=== PATIENT | female | born 1960 | race Caucasian/White ===

== ENCOUNTER 2025-05-01 21:26 | Emergency (ER) | payer MEDICARE, SELFPAY ==
--- NOTE | 2025-05-01 21:28 | ECG_ITS ---
APPROVED REPORT Exam: Resting ECG HR:79 bpm ECG Measurements Heart Rate [address] 142 P 38 QRSd 89 QRS 5 QT 391 T 42 QTc 426 Conclusion SINUS RHYTHM LOW QRS VOLTAGE IN PRECORDIAL LEADS [QRS DEFLECTION < 1.0 mV IN CHEST LEADS] POSSIBLE RIGHT VENTRICULAR CONDUCTION DELAY [RSR (QR) IN V1/V2] BORDERLINE ECG UNCONFIRMED REPORT Normal sinus rhythm. QTc normal at 426. No ST elevation or depression Electronically signed by : ALEXANDER RODNEY, 05/02/2025 11:14:42
[2025-05-01 21:29] VITALS: BP 117/78; PULSE 82; RESP 18; TEMP 36.7; O2SAT 100; BMI 30.7
--- NOTE | 2025-05-01 21:29 | XR_ITS ---
PROCEDURE INFORMATION: Exam: XR Chest Exam date and time: 05/01/2025 10:38 PM Age: 64 years old Clinical indication: Other: Syncope TECHNIQUE: Imaging protocol: Radiologic exam of the chest. Views: 1 view. COMPARISON: CT ANGIO CHEST PE PROTOCOL 05/01/2025 10:33 PM FINDINGS: Lungs: Minor atelectasis findings at the left lung base Pleural spaces: Unremarkable. No pleural effusion. No pneumothorax. Heart/Mediastinum: Unremarkable. No cardiomegaly. Bones/joints: Unremarkable. IMPRESSION: Minor atelectasis findings at the left lung base. Otherwise negative exam
--- NOTE | 2025-05-01 21:29 | CT_ITS ---
PROCEDURE INFORMATION: Exam: CT Head Without Contrast Exam date and time: 05/01/2025 10:22 PM Age: 64 years old Clinical indication: Other: Brief unresponsiveness; Additional info: Brief unresponsiveness, history of stroke TECHNIQUE: Imaging protocol: Computed tomography of the head without contrast. Radiation optimization: All CT scans at this facility use at least one of these dose optimization techniques: automated exposure control; mA and/or kV adjustment per patient size (includes targeted exams where dose is matched to clinical indication); or iterative reconstruction. COMPARISON: CT HEAD/BRAIN WO CON 05/01/2025 10:22 PM FINDINGS: Brain: No evidence for intracranial hemorrhage, mass lesions or acute stroke. 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 Moderate small-vessel ischemic changes of periventricular white matter. Intracranial vascular calcifications. Cerebral ventricles: Ex vacuo enlargement of the right lateral ventricle. Pituitary gland and sella: Negative Paranasal sinuses: Visualized sinuses are unremarkable. No fluid levels. Mastoid air cells: Visualized mastoid air cells are well aerated. Orbital cavities: Negative. Bones: Unremarkable. No acute fracture. Soft tissues: Unremarkable. Vasculature: Negative. IMPRESSION: 1. No evidence for intracranial hemorrhage, mass lesions or acute stroke. 2. 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 3. Ex vacuo enlargement of the right lateral ventricle. 4. Moderate small-vessel ischemic changes of periventricular white matter. 5. Intracranial vascular calcifications.
--- NOTE | 2025-05-01 21:29 | CT_ITS ---
PROCEDURE INFORMATION: Exam: CTA Head With Contrast, Arteriography Exam date and time: 05/01/2025 10:28 PM Age: 64 years old Clinical indication: Other: Brief unresponsiveness; Additional info: Brief unresponsiveness, history of stroke TECHNIQUE: Imaging protocol: Computed tomographic angiography of the head with contrast. Exam focused on the arteries. 3D rendering (Not supervised by radiologist): MIP and/or 3D reconstructed images were created by the technologist. Radiation optimization: All CT scans at this facility use at least one of these dose optimization techniques: automated exposure control; mA and/or kV adjustment per patient size (includes targeted exams where dose is matched to clinical indication); or iterative reconstruction. Contrast material: ISOVUE; Contrast volume: 80 ml; Contrast route: INTRAVENOUS (IV); COMPARISON: CT HEAD/BRAIN WO CON 05/01/2025 10:22 PM FINDINGS: ANTERIOR CIRCULATION: Right internal carotid artery: Intracranial segment is patent with no significant stenosis. No aneurysm. Right middle cerebral artery: Diminutive caliber distal right middle cerebral artery with decreased profusion of distal right MCA candelabra branches; consistent with prior right MCA infarct. Right anterior cerebral artery: No occlusion or significant stenosis. No aneurysm. Left internal carotid artery: Intracranial segment is patent with no significant stenosis. No aneurysm. Left middle cerebral artery: Left middle cerebral artery is patent. No evidence for branch occlusion. Left anterior cerebral artery: No occlusion or significant stenosis. No aneurysm. POSTERIOR CIRCULATION: Right vertebral artery: No occlusion or significant stenosis. No aneurysm. Left vertebral artery: No occlusion or significant stenosis. No aneurysm. Basilar artery: No occlusion or significant stenosis. No aneurysm. Right posterior cerebral artery: No occlusion or significant stenosis. No aneurysm. Left posterior cerebral artery: No occlusion or significant stenosis. No aneurysm. 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 Small vessel ischemic changes of the periventricular white matter. Cerebral ventricles: Ex vacuo enlargement of the right lateral ventricle. Bones/joints: Unremarkable. No acute fracture. Soft tissues: Unremarkable. IMPRESSION: 1. Diminutive caliber distal right middle cerebral artery with decreased profusion of distal right MCA candelabra branches; consistent with prior right MCA infarct. 2. Left middle cerebral artery is patent. No evidence for branch occlusion. 3. Posterior circulation vessels are patent. 4. 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 5. Ex vacuo enlargement of the right lateral ventricle. 6. Small vessel ischemic changes of the periventricular white matter.
--- NOTE | 2025-05-01 21:29 | CT_ITS ---
PROCEDURE INFORMATION: Exam: CTA Neck With Contrast Exam date and time: 05/01/2025 10:28 PM Age: 64 years old Clinical indication: Other: Brief unresponsiveness; Additional info: Brief unresponsiveness, history of stroke TECHNIQUE: Imaging protocol: Computed tomographic angiography of the neck with contrast. Exam focused on the cervical segments of the vasculature. 3D rendering (Not supervised by radiologist): MIP and/or 3D reconstructed images were created by the technologist. Radiation optimization: All CT scans at this facility use at least one of these dose optimization techniques: automated exposure control; mA and/or kV adjustment per patient size (includes targeted exams where dose is matched to clinical indication); or iterative reconstruction. Contrast material: ISOVUE; Contrast volume: 80 ml; Contrast route: INTRAVENOUS (IV); COMPARISON: CT HEAD/BRAIN WO CON 05/01/2025 10:22 PM FINDINGS: Right common carotid artery: No stenosis. No dissection or occlusion. Right internal carotid artery: Diminutive caliber proximal right internal carotid artery along with other multifocal stenoses. The findings may be chronic given the extensive old right MCA infarct. Right external carotid artery: No occlusion or stenosis of the origin. Left common carotid artery: Patent left carotid. Calcific plaque left carotid bifurcation along with soft plaque without hemodynamically significant stenosis. Left internal carotid artery: Left internal carotid artery cervical loop. Patent vertebral artery segments. Left external carotid artery: There is a 50% left external carotid stenosis coronal image 5/59. Right vertebral artery: No stenosis. No dissection or occlusion. Left vertebral artery: No stenosis. No dissection or occlusion. Soft tissues: Normal. No significant soft tissue swelling. Bones/joints: No acute fracture. IMPRESSION: 1. Diminutive caliber proximal right internal carotid artery along with other multifocal stenoses. The findings may be chronic given the extensive old right MCA infarct. 2. Patent left carotid. Calcific plaque left carotid bifurcation along with soft plaque without hemodynamically significant stenosis. 3. There is a 50% left external carotid stenosis coronal image 5/59. 4. Left internal carotid artery cervical loop. Patent vertebral artery segments. REFERENCES: NASCET CRITERIA. The degree of stenosis in the cervical segment of the internal carotid artery is based on NASCET criteria. Normal is no stenosis. Mild is less than 50% stenosis. Moderate is 50-69% stenosis. Severe is 70% to 99% stenosis. Total occlusion is no detectable patent lumen.
--- NOTE | 2025-05-01 21:35 | [facility].EDGENADL ---
Discharge Plan Disposition Patient Disposition: Home, Self-Care Condition: Good Activity Restrictions/Add. Instructions Additional Instructions/Restrictions: Follow-up with her primary care physician over the next few days. If she develops any new or worsening symptoms, or if you become concerned for her health for any reason, return to the emergency department for evaluation. Clinical Impressions Clinical Impression: Syncope, vasovagal Instructions Patient Instructions: DI for Syncope in Adults (Fainting), DI for Syncope in Children (Fainting) Print Language Print Language: Serbian Discharge ED Provider: Carlos Mueller Adult HPI General Chief complaint: Syncope Stated complaint: unresponsive Time Seen by Provider: 05/01/25 21:34 Mode of Arrival: EMS Source of Information: Patient and EMS Description of Symptoms (Recalled from ER Triage Doc. by RN): Pts family called EMS stating that pt had passed out and was unresponsive on the toilet. EMS reports upon their arrival pt was responsive to verbal stimuli and oriented x2, and hypotensive. EMS reports large BM. Pt has hx of CVA, on eliquis. no new deficits noted. A&O x4. BP WNL History of Present Illness HPI narrative: Adriana Suarez is a 64-year-old female with a history of previous stroke resulting in left-sided deficits on Eliquis and aspirin, hypertension, hyperlipidemia who presents to the emergency department for complaints of an episode of unresponsiveness. Per EMS and patient, she was on the toilet and had a bowel movement and reportedly by family had an episode of unresponsiveness. Patient denies losing consciousness but family told EMS that she was fully unresponsive. Per EMS, she would wake up with nonpainful stimuli upon arrival and was alert and oriented x 2. They noticed a large bowel movement in the toilet. They state that she was initially hypotensive on manual blood pressure, however repeat automatic blood pressure was within normal limits and she remained normotensive throughout the transport. Fingerstick blood glucose was 99. At this time, patient has no complaints or concerns. She denies any abdominal pain, chest pain, shortness of breath or weakness. She is oriented to self and location but thinks it is 2022. It was also noted that patient recently returned from a trip from [facility] Related Data Allergies Allergy/AdvReac Type Severity Reaction Status Date / Time No Known Allergies Allergy Verified 05/01/25 21:35 [facility] Disclaimer: The information contained in this section may have been updated after the patient was seen, as this information can be updated by other users. Social History Smoking Status: Current every day smoker alcohol intake: never current occupational status: other Travel in the last 8 weeks?: None ROS Obtained: Yes Systems reviewed as appropriate & no additional complaints except as documented Physical Exam General General appearance: alert and in no apparent distress Comment: answering questions, following commands Head Head exam: atraumatic Eye Eye exam: Present normal appearance, PERRL and EOMI ENT ENT exam: Present normal external ear exam Neck Neck exam: Present full ROM Chest Chest inspection: Present symmetric chest wall rise Respiratory Respiratory exam: Present normal lung sounds bilaterally; Absent respiratory distress, wheezes or stridor Cardiovascular Cardiovascular exam: Present regular rate and normal rhythm Abdominal Exam Abdominal exam: Present soft; Absent tenderness or guarding Extremities Exam Extremities exam: Present normal inspection Back Exam Back exam: Present normal inspection Neurological Exam Neurological exam: Present alert, oriented X3, CN II-XII intact, normal gait and other (No dysdiadochokinesia. She has a contracted left fist but is able to hold her left arm in the air with minimal drift. 5 out of 5 strength and sensation to the right upper extremity. 5 out of 5 strength and sensation to the bilateral lower extremities. She is alert and oriented to self and locati) Psychiatric Psychiatric exam: Present normal affect Skin Skin exam: Present warm and dry Medical Decision Making Medical Records Screening: Per USPSTF and CDC recommendations, given the prevalence of disease in our region, it is our hospital?s policy to screen for HIV and viral Hepatitis for all patients aged 18 and over and those with ongoing risk factors. Geoff Inquiry Pt receiving controlled substance: No Vital Signs: 05/01/25 21:29 05/01/25 22:45 05/01/25 23:31 Temperature 98.1 F Temperature Source Oral Pulse Rate 83 Pulse Rate [Left Radial] 82 Respiratory Rate 18 14 22 Blood Pressure 101/79 L 124/94 H Blood Pressure [Right Arm] 117/78 Blood Pressure Mean [Right Arm] 91 Blood Pressure Source Blood Pressure Source [Right Arm] Automatic Cuff Blood Pressure Position Blood Pressure Position [Right Arm] Sitting 02 Sat by Pulse Oximetry 100 99 Oxygen Delivery Method Room Air 05/02/25 00:02 05/02/25 00:26 Temperature 98.4 F Temperature Source Oral Pulse Rate 85 Pulse Rate [Left Radial] Respiratory Rate 16 17 Blood Pressure 143/126 H 149/126 H Blood Pressure [Right Arm] Blood Pressure Mean [Right Arm] Blood Pressure Source Automatic Cuff Blood Pressure Source [Right Arm] Blood Pressure Position Sitting Blood Pressure Position [Right Arm] 02 Sat by Pulse Oximetry 95 Oxygen Delivery Method Room Air Lab Data Lab Results 05/01/25 21:33: VBG pH 7.31, VBG pCO2 51.2 H, VBG pO2 32.9, VBG HCO3 25.3, VBG Total CO2 26.8, VBG O2 Saturation 60.8, VBG Base Excess -1.0, VBG Lactic Acid 2.2 H 05/01/25 21:48: WBC 10.2, RBC 3.96 L, Hgb 13.0, Hct 37.8, MCV 95.5, MCH 32.8 H, MCHC 34.4, RDW 13.2, Plt Count 245, MPV 9.8, Neut % (Auto) 63.1, Lymph % (Auto) 28.7, Bollinger % (Auto) 4.9, Eos % (Auto) 2.2, Baso % (Auto) 0.6, Neut # (Auto) 6.4, Lymph # (Auto) 2.9, Bollinger # (Auto) 0.5, Eos # (Auto) 0.2, Baso # (Auto) 0.1, PT 10.9, INR 0.98, APTT 23.0, Sodium 139, Potassium 3.6, Chloride 101, Carbon Dioxide 28, Anion Gap 13.6, BUN 25 H, Creatinine 0.90, Estimated Creat Clear 61, Estimated GFR 63, Est GFR ( Amer) 77, Glucose 149 H, Calcium 9.1, Total Bilirubin 0.5, AST 28, ALT 17, Alkaline Phosphatase 93, Troponin I < 0.01, Total Protein 7.3, Albumin 4.3, Globulin 3.0, Albumin/Globulin Ratio 1.4 05/01/25 23:02: Urine Color Yellow, Urine Appearance Clear, Urine pH 6.5, Ur Specific [place] <= 1.005, Urine Protein Negative, Urine Glucose (UA) Negative, Urine Ketones Negative, Urine Blood Trace-i, Urine Nitrate Negative, Urine Bilirubin Negative, Urine Urobilinogen 0.2, Ur Leukocyte Esterase Negative, Urine RBC Occasional, Urine WBC Occasional, Ur Squamous Epith Cells 5-10, Urine Bacteria Trace 05/01/25 21:48 05/01/25 21:48 Orders (Tests/Meds): ED MEDICATIONS Discontinued Medications Generic Name Dose Route Start Last Admin Trade Name Ena PRN Reason Stop Dose Admin Lactated Ringer's 500 mls @ 999 mls/hr 05/01/25 22:36 05/01/25 22:45 Lactated Ringer's 500ml IV 05/01/25 23:06 999 mls/hr .Q31M ONE Administration Iopamidol 150 ml 05/01/25 22:31 05/01/25 22:32 Iopamidol-370 (76%);100ml Bottle IV 05/01/25 22:32 150 ml ONCE ONE Administration Sodium Chloride 100 ml 05/01/25 22:31 05/01/25 22:32 0.9 % Sodium Chloride 50 Ml Vial IV 05/01/25 22:32 100 ml ONCE ONE Administration Sodium Chloride 10 ml 05/01/25 22:31 05/01/25 22:32 Sodium Chloride 0.9% 10ml Syr (Rad Only) IV 05/31/25 22:30 10 ml NEEDED PRN Administration Maintain IV Site ORDERS Category Date Time Status CT angio chest PE protocol Stat Cat Scan 05/01/25 21:[address] angio head Stat Cat Scan 05/01/25 21:[address] angio neck Stat Cat Scan 05/01/25 21:[address] head/brain wo con Stat Cat Scan 05/01/25 21:29 Completed CXR --portable [XR chest portable] Stat Exams 05/01/25 21:29 Completed CBC w/Auto Diff [Complete Blood Count Auto Diff] Stat Lab 05/01/25 21:48 Completed CMP [Comprehensive Metabolic Panel] Stat Lab 05/01/25 21:48 Completed PT INR [Prothrombin Time INR] Stat Lab 05/01/25 21:48 Completed PTT [Activated Partial Thrombo Time] Stat Lab 05/01/25 21:48 Completed Troponin I Stat Lab 05/01/25 21:48 Completed UA [Urinalysis and Microscopic] Stat Lab 05/01/25 23:02 Completed VBG [Venous Blood Gas] Stat RT 05/01/25 21:33 Completed Medical Decision Narrative: Adriana Suarez is a 64-year-old female with a history of previous stroke resulting in left-sided deficits on Eliquis and aspirin, hypertension, hyperlipidemia who presents to the emergency department for complaints of an episode of unresponsiveness. Per EMS and patient, she was on the toilet and had a bowel movement and reportedly by family had an episode of unresponsiveness. Patient denies losing consciousness but family told EMS that she was fully unresponsive. Per EMS, she would wake up with nonpainful stimuli upon arrival and was alert and oriented x 2. They noticed a large bowel movement in the toilet. They state that she was initially hypotensive on manual blood pressure, however repeat automatic blood pressure was within normal limits and she remained normotensive throughout the transport. Fingerstick blood glucose was 99. At this time, patient has no complaints or concerns. She denies any abdominal pain, chest pain, shortness of breath or weakness. She is oriented to self and location but thinks it is 2022. It was also noted that patient recently returned from a trip from [place], [place]. On arrival, patient is normotensive, heart rate within normal limits, breathing In room air with oxygen saturation 100% SpO2. Afebrile. Physical exam, as stated above, revealed an overall well-appearing female in no distress. She is alert, answering most questions appropriately and following commands. She is only disoriented to year and believes it is 2022. She has weakness in the left upper extremity with her fist clenched, however EMS told us that family told them that this was baseline from her previous stroke. She has no other focal neurological deficits. Full strength and sensation to bilateral upper and lower extremities. She has some mild left-sided facial droop, however reportedly this is her baseline from her previous stroke. Cranial nerves II through XII otherwise intact. Pupils equal round and reactive to light. Abdomen is soft, nontender nondistended. Cardiopulmonary exam is unremarkable. She has no significant peripheral edema. No chest wall tenderness. Full range of motion of the neck. Given patient's neurological deficits appear to be at her baseline according to EMS, patient is not stroke alerted. Differential diagnosis includes, but is not limited to: Vasovagal syncope, orthostatic syncope, new stroke stroke, electrolyte derangement, hypoglycemia, ACS, UTI, pulmonary embolism, among others. The most morbid conditions were considered and workup was based on these. Workup in the emergency department included: CTA head and neck, CT head without contrast, CT PE, chest x-ray troponin, BNP, PTT, PT/INR, CMP, CBC with differential, VBG with lactic acid, urinalysis. EKG interpreted by me personally. Normal sinus rhythm with ventricular rate of [address] elevation or depression. OH interval normal at 142. QTc normal at 426. Laboratory studies interpreted by me personally. No leukocytosis, no anemia, platelets normal at 245. Coagulation studies unremarkable. VBG with mildly elevated pCO2 but pH within normal limits at 7.31. Lactic acid very mildly elevated at 2.2. CMP with normal electrolytes, no JACKIE, glucose normal at 149. Troponin less than 0.01. Urinalysis shows no evidence of infection with occasional white blood cells, negative nitrate, negative leukocyte Estrace. CT and x-ray imaging interpreted by me personally. No intracranial hemorrhage, mass or midline shift. There is evidence of an old right-sided stroke, however there is no evidence of an acute stroke. CTA of the head and neck interpreted by me personally. No large vessel occlusion or clinically significant stenosis. See final radiology report for details. CT PE interpreted by me personally without evidence of pulmonary embolism and no groundglass opacities to suggest pneumonia. No pneumothoraces or pleural effusions. Chest x-ray grossly unremarkable as well. On reassessment, patient's son is at the bedside and provides additional details. He states that she was present at the time of this event. He notes that she had seemed somewhat fatigued prior to the event was laying down on the bed. She then went to have a bowel movement and was sitting on the toilet she then fell asleep for approximately 5 minutes and was somewhat difficult to arouse. He states that she appears completely back to her normal at this time. Her workup today is unremarkable for any acute pathology. Given her deficits are chronic without new changes, there is low concern for recrudescence of an old stroke or new stroke with reassuring imaging studies. It was felt that she likely had a vasovagal episode while having a bowel movement on the toilet, causing her to syncopized. They were encouraged to follow-up with her primary care physician and return for any new or worsening symptoms. All questions were answered. They demonstrated understanding and were in agreement this plan. She was then discharged from the emergency department in stable condition. Critical Care Critical Care Time Critical Care Time: Yes Attestation: On 05/01/25, the high probability of a clinically significant, sudden or life threatening deterioration of the following system(s) required my full and direct attention, intervention and personal management. The time I documented below is in addition to time spent performing reported procedures but includes the following listed in this critical care notation. Total Time Total Critical Care Time: 35
--- NOTE | 2025-05-01 21:38 | CT_ITS ---
PROCEDURE INFORMATION: Exam: CTA Chest With Contrast Exam date and time: 05/01/2025 10:33 PM Age: 64 years old Clinical indication: Other: Syncope; Additional info: Syncope, recent travel TECHNIQUE: Imaging protocol: Computed tomographic angiography of the chest with contrast. Exam focused on the arteries. 3D rendering (Not supervised by radiologist): MIP and/or 3D reconstructed images were created by the technologist. Radiation optimization: All CT scans at this facility use at least one of these dose optimization techniques: automated exposure control; mA and/or kV adjustment per patient size (includes targeted exams where dose is matched to clinical indication); or iterative reconstruction. Contrast material: ISOVUE; Contrast volume: 70 ml; Contrast route: INTRAVENOUS (IV); COMPARISON: CT ANGIO NECK 05/01/2025 10:28 PM FINDINGS: Pulmonary arteries: No CT evidence of acute pulmonary embolus Aorta: Unremarkable. No aortic aneurysm. No aortic dissection. Lungs: Unremarkable. No consolidation. No masses. Pleural spaces: Unremarkable. No pneumothorax. No pleural effusion. Heart: Unremarkable. No cardiomegaly. No pericardial effusion. Coronary arteries: No definite coronary artery calcifications Lymph nodes: Calcified lymph nodes are present at the right hilar region with a right lower lobe calcified granuloma Bones/joints: Unremarkable. No acute fracture. Soft tissues: Unremarkable. IMPRESSION: 1. No CT evidence of acute pulmonary embolus 2. No visible acute intrathoracic abnormality.
[2025-05-01 21:59] LABS: VBG HCO3 25.3 mmol/L (23-30); VBG PH 7.31 mmol/L (7.31-7.41); VBG PO2 32.9 mmol/L (28-40)
[2025-05-01 22:01] LABS: Hematocrit 37.8 % (37.0-47.0); Hemoglobin 13.0 g/dL (12.2-16.2); Immature Granulocytes % 0.5 %; Mean Corpuscular HGB Conc 34.4 g/dL (31.8-35.4); Mean Corpuscular Hemoglobin 32.8 pg (27.0-31.2); Mean Corpuscular Volume 95.5 fl (81-99); Nucleated Red Blood Cells % 0 %; Platelet Count 245 K/mm3 (142-424); Red Blood Count 3.96 M/mm3 (4.20-5.40); Red Cell Distribution Width-SD 46.3 fL; White Blood Count 10.2 K/mm3 (4.8-10.8)
[2025-05-01 22:02] LABS: Lactate Venous 2.2 mmol/L (0.4-2.0); VBG PCO2 51.2 mmol/L (35-51)
[2025-05-01 22:05] LABS: Albumin Level 4.3 g/dl (3.5-5.0); Chloride 101 mmol/L (98-107); Potassium 3.6 mmoL/L (3.5-5.1); Sodium 139 mmol/L (136-145)
[2025-05-01 22:07] LABS: Blood Urea Nitrogen 25 mg/dl (7-17); Creatinine Clearance Estimated 61 mL/min (50-200); Creatinine,Serum 0.90 mg/dl (0.52-1.04); Estimated Glomerular Filt Rate 63 ml/min (>60); GFR (African American) 77 ML/MIN (>60)
[2025-05-01 22:08] LABS: Alanine Aminotransferase 17 U/L (12-78); Albumin/Globulin Ratio 1.4 (1.1-1.8); Alkaline Phosphatase 93 U/L (38-126); Anion Gap 13.6 mEq/L (5-15); Aspartate Amino Transferase 28 U/L (14-36); Bilirubin,Total 0.5 mg/dl (0.2-1.3); Calcium 9.1 mg/dl (8.4-10.2); Carbon Dioxide 28 mmol/L (22.0-30.0); Globulin 3.0 g/dL (1.3-3.2); Glucose 149 mg/dl (74-100); Total Protein,Serum 7.3 g/dl (6.3-8.2)
[2025-05-01 22:11] LABS: Activated Partial Thrombo Time 23.0 seconds (22.8-30.6); INR 0.98 (0.9-1.1); Prothrombin Time 10.9 seconds (10.1-12.5)
[2025-05-01 22:22] LABS: Troponin I < 0.01 ng/ml (0.00-0.034)
--- NOTE | 2025-05-01 22:23 | PC.NURSE ---
pt in scans at this time.
[2025-05-01] MEDS: 0.9 % SODIUM CHLORIDE 50 ML VIAL 100 ML IV (22:32)
[2025-05-01] MEDS: IOPAMIDOL-370 (76%);100ML BOTTLE 150 ML IV (22:32)
[2025-05-01] MEDS: SODIUM CHLORIDE 0.9% 10ML SYR (RAD ONLY) 10 ML IV (22:32)
[2025-05-01 22:45] VITALS: BP 101/79; PULSE 83; RESP 14; O2SAT 99
[2025-05-01] MEDS: RINGERS SOLUTION,LACTATED 500 ML 999 ML IV (22:45)
--- OUTSIDE RECORDS SUMMARY | 2025-05-01 23:01 | XMS_ITS | Encounter Summary ---
Author Organization [place] [address] Care Team Providers Care Sas Programmer Name Role Phone Jostin Wilkins MD Primary Care Provider [phone] Reason for Visit * Reason Comments Medication Refill Encounter Details Date Type Department Care Team (Late st Contact Info) Description 03/28/2025 Refill SEP Zari FLORES [address] [place] [address] Jostin Wilkins MD [address] [place] [address] Medication Refill Social History Tobacco Use Types Packs/Day Years Used Date Smoking Tobacco: Every Day Cigarettes Passive Smoke Exposure: Past Smokeless Tobacco: Never Alcohol Use Standard Drinks/Week Comments No 0 (1 standard drink = 0.6 oz pur e alcohol) Overall Financial Resource Strain (CARDIA) Answe r Date Recorded How hard is it for you to pa y for the very basics like food, housing, medical care, and heating? Not very hard 10/16/2022 PHQ-2 Answer Date Recorded PHQ-2 Total Score 0 12/21/2024 Hunger Vital Sign Answer Date Recorded Within the past 12 months, y ou worried that your food would run out before you got the money to buy more. Never true 10/16/20 22 Within the past 12 months, t he food you bought just didn't last and you didn't have money to get more. Never true 10/16/2022 PRAPARE - Transportation Answer Date Re corded In the past 12 months, has l ack of transportation kept you from medical appointments or from getting medications? No 09/20 In the past 12 months, has l ack of transportation kept you from meetings, work, or from getting things needed for daily living? No 10/16/2022 Comments No Sex and Gender Information Value Date Recorded Sex Assigned at Not on file Legal Sex Female 12:40 PM EDT Gender Identity Not on file Sexual Orientation Not on file documented as of this encounter Functional Status * Is the person deaf or does he/she have serious difficulty hearing? Answer Date of Assessment Author No 12/21/2024 11:07 AM Caprice Pugh CCMA * Is the person blind or does he/she have serious difficulty seeing even when wearing glasses? Answer Date of Assessment Author No 12/21/2024 11:07 AM Caprice Pugh CCMA * Does this person have serious difficulty walking or climbing stairs? Answer Date of Assessment Author No 12/21/2024 11:07 AM Caprice Pugh CCMA * Does this person have difficulty dressing or bathing? Answer Date of Assessment Author No 12/21/2024 11:07 AM Caprice Pugh CCMA * Because of a physical, mental or emotional condition, does this person have difficulty doing errands alone such as visiting a doctor's office or shopping? Answer Date of Assessment Author No 12/21/2024 11:07 AM Caprice Pugh CCMA documented as of this encounter Mental Status * Because of a physical, mental or emotional condition, does this person have serious difficulty concentrating, remembering or making decisions? Answer Entry Date Author No 12/21/2024 11:07 AM Caprice Pugh CCMA documented in this encounter Ordered Prescriptions Prescription Sig Dispense Quantity Refills Last Filled Start Date End Date aspirin 325 mg Oral Tablet Take 1 Tablet by mouth daily (with breakfast). 90 Tablet 3 03/28/2025 documented in this encounter Plan of Treatment Not on file documented as of this encounter Goals Goal Patient Goal Type Associated Problems Recent Progress Patient-Stated? Author Blood Pressure < 140/90 Blood Pressure 138/84(2024 9:10 AM EDT) No Kay Delong APRN Maintain a healthy diet, exercise regularly and maintain an ideal body weight General No Ange St RMA Stay Tobacco Free Lifestyle No Ange St RMA documented as of this encounter Visit Diagnoses Not on filedocumented in this encounter Discontinued Medications Medication Sig Discontinue Reason Start Date End Da te aspirin 325 mg Oral Tablet Take 1 Tablet by mouth daily (with breakfast) for 360 days. 02/24/2024 03/28/2025 documented as of this encounter Care Teams Sas Programmer Relationship Specialty Start Date End Date Jostin Wilkins MD [address] [place] [phone] PCP - General Family Medicine 03/26/11 documented as of this encounter
--- OUTSIDE RECORDS SUMMARY | 2025-05-01 23:01 | XMS_ITS | Encounter Summary ---
Author Organization [place] [address] Care Team Providers Care Supervisor Industrial Garment Name Role Phone Jostin Wilkins MD Primary Care Provider [phone] Reason for Visit * Reason Comments Medication Refill Encounter Details Date Type Department Care Team (Late st Contact Info) Description 03/30/2025 Refill SEP Zari FLORES [address] [place] [address] Jostin Wilkins MD [address] [place] [address] Medication Refill Social History Tobacco Use [...] Refills Last Filled Start Date End Date HYDROcodone-acetami nophen (NORCO) 5-325 mg Oral TabletIndications:R adiculopathy of cervical spine Take 1 Tablet by mouth every 6 hours. 90 Tablet 03/31/2025 documented in this encounter Miscellaneous Notes * Telephone Encounter - Caprice Millan CCMA - 03/31/2025 3:12 PM EDT Last Office Visit reviewing controlled substances: 02/10/2025 Approved Ambien, Gabapentin, Lyrica, Butalbital = must be in last 6 months. All other controlled medications = must be in last 3 months. If visit is not up to date, please call and schedule appointment. Next appointment scheduled?: Gita RIVERA Last Reviewed by Prescriber: PDMP not electronically reviewed on this encounter. Date of last completed CSA if not included in flowsheet below: 06/06/2022 06/06/2022 12:02 AM 09/19/2022 10:00 AM 01/03/2023 3:00 PM CONTROLLED SUBSTANCE NICOLE Reference Number [id number] NICOLE Results as expected as expected as expected NEED If had complete compliance panel: NEED Last resulted compliance panel date: 11/12/2023 (If patient had partial drug screen or in-house drug screen, please document date of that below): documented in this encounter Plan of Treatment [...] documented as of this encounter Visit Diagnoses Diagnosis Radiculopathy of cervical spine Brachial neuritis or radiculitis nos documented in this encounter Discontinued Medications Medication Sig Discontinue Reason Start Date End Da te HYDROcodone-acetaminophe n (NORCO) 5-325 mg Oral TabletIndications:Radicu lopathy of cervical spine Take 1 Tablet by mouth every 6 hours. 02/24/2025 03/31/2025 documented as of this encounter Care Teams Supervisor Industrial Garment Relationship Specialty Start Date End Date Jostin Wilkins MD [address] [place] [phone] PCP - General Family Medicine 03/26/11 documented as of this encounter
--- OUTSIDE RECORDS SUMMARY | 2025-05-01 23:01 | XMS_ITS | Encounter Summary ---
Author Organization [facility] Address [address] [place] [address] Care Team Providers Care Gas Turbine Powerplant Mechanic Helper Name Role Phone Jostin Wilkins MD Primary Care Provider [phone] Source Comments This information has been disclosed to you from confidential records protectfrom disclosure by state law. You shall make no further disclosure of thisinformation without the specific, written, and informed release of theindividual to whom it pertains, or as otherwise permitted by law. A generalauthorization for the release of medical or other information is not sufficientfor the purposes of the release of HIV test results or diagnoses. [id number] Reason for Referral * Physician/WESTLEY (Routine) - Closed Specialty Diagnoses / Procedures Referred By Contact Referred To Contact Pre-Admission Testing Diagnoses Right internal carotid occlusion Eriberto Escobedo MD [address] [place] [address] Phone: tel: fax: [facility] Perioperative Care at [facility] [address] [place] [address] Phone: tel: fax: Referral ID Status Reason Start Date Expiration Date Visits Re quested Visits Authorized [id number] Closed 08/21/2022 02/17/2023 1 1 * Surgical (Routine) - Closed Specialty Diagnoses / Procedures Referred By Contac t Referred To Contact Surgery Diagnoses Right internal carotid occlusion Procedures Case request operating room: RIGHT CAROTID ENDARTERECTOMY Eriberto Escobedo MD [address] [place] [address] Phone: tel: fax: Referral ID Status Reason Start Date Expiration Date Visits Re quested Visits Authorized [id number] Closed 08/21/2022 02/17/2023 1 1 Encounter Details Date Type Department Care Team (Late st Contact Info) Description 08/21/2022 Orders Only [facility] Neurosurgery at [facility] [address] [place] [address] Eriberto Escobedo MD [address] [place], [place] [id number] Right internal carotid occlusion (Primary Dx) Social History Tobacco Use Types Packs/Day Years Used Date Smoking Tobacco: Every Day Cigarettes Smokeless Tobacco: Never Alcohol Use Standard Drinks/Week Comments Not Currently 0 (1 standard drink = 0.6 oz pur e alcohol) AUDIT-C Answer Date Recorded Q1: How often do you have a drink containing alcohol? Never 05/09/2022 Q2: How many drinks containi ng alcohol do you have on a typical day when you are drinking? Patient does not drink Q3: How often do you have si x or more drinks on one occasion? Never 05/09/2022 PHQ-2 Answer Date Recorded PHQ-2 Total Score 0 06/21/2022 Comments No Sex and Gender Information Value Date Recorded Sex Assigned at Not on file Legal Sex Female 4:12 PM EST Gender Identity Not on file Sexual Orientation Not on file COVID-19 Exposure Response Date Recorded In the last 10 days, have yo u been in contact with someone who was confirmed or suspected to have Coronavirus/COVID-19? Unable to assess 08/20/2022 9:41 AM EDT documented as of this encounter Plan of Treatment Scheduled Referrals Name Type Priority Associated Diagnoses Order Schedule [facility] Visit with Anesthesiologist (C) Outpatient Referral Routine Right internal carotid occlusion Ordered: 08/21/2022 documented as of this encounter Results * Protime-INR (08/30/2022 10:43 AM EST) Protime 12.8 12.1 - 15.1 seconds 08/30/2022 12:33 PM EST [facility] INR 0.9 0.9 - 1.1 08/30/2022 12:33 PM EST [facility] Comment: RECOMMENDED THERAPEUTIC RANGES USING INR : Stable oral anticoagulant therapy: 2.0 - 3.0 Mechanical prosthetic heart valve: 2.5 - 3.5 Recurrent acute myocardial infarction: 2.5 - 3.5 Plasma 08/30/2022 10:4 3 AM EST 08/30/2022 12:03 PM EST Eriberto Escobedo MD LAB BLOOD ORDERABLES Fi nal Result Performing Organization Address City/State/[facility] Co de Phone Number [facility] [address] [place] [address] * (ABNORMAL) Differential (08/30/2022 10:43 AM EST) Neutrophils Relative 48.0 40.0 - 80.0 % 08/30/2022 1:01 PM EST [facility] Lymphocytes Relative 42.8 15.0 - 45.0 % 08/30/2022 1:01 PM EST [facility] Monocytes Relative 4.9 0.0 - 12.0 % 08/30/2022 1:01 PM EST [facility] Eosinophils Relative 3.6 0.0 - 8.0 % 08/30/2022 1:01 PM EST [facility] Basophils Relative 0.7 0.0 - 1.0 % 08/30/2022 1:01 PM EST [facility] nRBC 0 0 - 0 /100 WBC 08/30/2022 1:01 PM EST [facility] Neutrophils Absolute 4,656 1,500 - 7,800 /uL 08/30/2022 1:01 PM EST [facility] Lymphocytes Absolute 4,152(H) 850 - 3,900 /uL 08/30/2022 1:01 PM EST [facility] Monocytes Absolute 475 200 - 950 /uL 08/30/2022 1:01 PM EST [facility] Eosinophils Absolute 349 15 - 500 /uL 08/30/2022 1:01 PM EST [facility] Basophils Absolute 68 0 - 200 /uL 08/30/2022 1:01 PM EST [facility] Whole Blood 08/30/2022 10:4 3 AM EST 08/30/2022 12:05 PM EST Eriberto Escobedo MD LAB BLOOD ORDERABLES Fi nal Result [facility] [address] * (ABNORMAL) CBC (08/30/2022 10:43 AM EST) Pathologist [facility] WBC 9.7 3.8 - 10.8 10E3/uL 08/30/2022 1:01 PM EST [facility] RBC 5.22(H) 3.80 - 5.10 10E6/uL 08/30/2022 1:01 PM EST [facility] Hemoglobin 15.8(H) 11.7 - 15.5 g/dL 08/30/2022 1:01 PM [facility] Hematocrit 47.2(H) 35.0 - 45.0 % 08/30/2022 1:01 PM EST [facility] MCV 90.4 80.0 - 100.0 fL 08/30/2022 1:01 PM EST [facility] MCH 30.2 27.0 - 33.0 pg 08/30/2022 1:01 PM EST [facility] MCHC 33.4 32.0 - 36.0 g/dL 08/30/2022 1:01 PM [facility] RDW 13.6 11.0 - 15.0 % 08/30/2022 1:01 PM EST [facility] Platelets 199 140 - 400 10E3/uL 08/30/2022 1:01 PM EST [facility] MPV 8.2 7.5 - 11.5 fL 08/30/2022 1:01 PM EST [facility] Whole Blood 08/30/2022 10:4 3 AM EST 08/30/2022 12:05 PM EST Eriberto Escobedo MD LAB BLOOD ORDERABLES Fi nal Result [facility] [address] * Antibody screen (08/30/2022 10:43 AM EST) Antibody Screen Negative 08/30/2022 1:00 PM EST [facility] Blood 08/30/2022 10:4 3 AM EST 08/30/2022 12:09 PM EST Narrative [facility] - 08/30/2022 1:07 PM EST Testing performed by [facility] Transfusion Service Eriberto Escobedo MD BLOOD BANK TEST ORDERAB LES Final Result Performing Organization Address City/[facility]/ZIP Co de Phone Number [facility] [address] * ABO/Rh (08/30/2022 10:43 AM EST) ABO Grouping O 08/30/2022 12:41 PM EST [facility] Rh Type Positive 08/30/2022 12:41 PM EST [facility] Blood 08/30/2022 10:4 3 AM EST 08/30/2022 12:09 PM EST Eriberto Escobedo MD BLOOD BANK TEST ORDERAB LES Final Result [facility] [address] * Comprehensive metabolic panel (08/30/2022 10:43 AM EST) Sodium 143 133 - 146 mmol/L 08/30/2022 12:41 PM EST [facility] Potassium 4.1 3.5 - 5.3 mmol/L 08/30/2022 12:41 PM EST [facility] Chloride 107 98 - 110 mmol/L 08/30/2022 12:41 PM EST [facility] CO2 26 21 - 33 mmol/L 08/30/2022 12:41 PM EST [facility] Anion Gap 10 3 - 16 mmol/L 08/30/2022 12:41 PM EST [facility] BUN 20 7 - 25 mg/dL 08/30/2022 12:41 PM EST [facility] Creatinine 0.92 0.60 - 1.30 mg/dL 08/30/2022 12:41 PM EST [facility] Glucose 100 70 - 100 mg/dL 08/30/2022 12:41 PM EST [facility] Calcium 10.0 8.6 - 10.3 mg/dL 08/30/2022 12:41 PM EST [facility] Total Bilirubin 0.6 0.0 - 1.5 mg/dL 08/30/2022 12:41 PM EST [facility] AST 20 13 - 39 U/L 08/30/2022 12:41 PM EST [facility] ALT 10 7 - 52 U/L 08/30/2022 12:41 PM EST [facility] Alkaline Phosphatase 94 36 - 125 U/L 08/30/2022 12:41 PM EST [facility] Total Protein 7.5 6.4 - 8.9 g/dL 08/30/2022 12:41 PM EST [facility] Albumin 4.4 3.5 - 5.7 g/dL 08/30/2022 12:41 PM EST [facility] Osmolality, Calculated 299 278 - 305 mOsm/kg 08/30/2022 12:41 PM EST [facility] EGFR 71 08/30/2022 12:41 PM EST [facility] Comment:As of 2021, the estimated GFR is calculated using the 2020 Chronic Kidney Disease Epidemiology Collaboration (CKD-EPI) equation. In line with the NKF-ASN Task Force Recommendations, this equation does not include a coefficient for race. A single eGFR value is calculated for each patient. The reference interval is >60 mL/min/1.73m2. eGFR values greater than 90 will be reported as >90mL/min/1.73m2. Reference: Kip C, Blanca M, Destin [place], Edilia [place], Stanton [place], Stanley [place], et al. A Unifying Approach for GFR Estimation: Recommendations of the NKF-ASN Task Force on Reassessing the inclusion of Race in Diagnosing Kidney Disease. Am J Kidney Dis. 2020. Plasma 08/30/2022 10:4 3 AM EST 08/30/2022 12:03 PM EST us Eriberto Escobedo MD LAB BLOOD ORDERABLES Fi nal Result [facility] [address] [place] [address], [facility] documented in this encounter Visit Diagnoses Diagnosis Right internal carotid occlusion- Primary Preop examination Unspecified pre-operative examination Right internal carotid occlusion documented in this encounter Care Teams Gas Turbine Powerplant Mechanic Helper Relationship Specialty Start Date End Date Jostin Wilkins MD [address] [place], [place] [phone] PCP - General Internal Medicine 05/09/22 documented as of this encounter
--- OUTSIDE RECORDS SUMMARY | 2025-05-01 23:01 | XMS_ITS | Clinical Summary ---
Author Organization [facility] Address [address] [place] [address] Care Team Providers Care Steward/Stewardess Wine Name Role Phone Jostin Wilkins MD Primary Care Provider [phone] Source Comments This information has been disclosed to you from confidential records protectedfrom disclosure by state law. You shall make no further disclosure of thisinformation without the specific, written, and informed release of theindividual to whom it pertains, or as otherwise permitted by law. A generalauthorization for the release of medical or other information is not sufficientfor the purposes of therelease of HIV test results or diagnoses. [id number] Allergies Active Allergy Reactions Criticality Noted Date Comments Bee Venom Protein (Honey Bee) Shortness Of Breath,Swelling High 08/30/2022 Cetylpyridinium-Benzocaine 2 Penicillins 05/09/2022 Medications melatonin 3 mg Tab Take 2 tablets (6 mg total) by mouth at bedtime. 0 05/15/2022 Active nicotine, polacrilex, (NICORETTE) 2 mg gum Take 1 each (2 mg total) by mouth every hour as needed for Smoking cessation. 100 Stick 05/15/2022 Active HYDROcodone-bin taminophen (NORCO) 5-325 mg per tablet Take 1 tablet by mouth every 6 hours as needed for Pain. Active valsartan (DIOVAN) 40 MG tablet Take 1 tablet (40 mg total) by mouth daily. Active aspirin 325 MG tablet Take 1 tablet (325 mg total) by mouth daily. 30 tablet 10 08/20/2022 Active apixaban (ELIQUIS) 5 mg Tab Take 1 tablet (5 mg total) by mouth 2 times a day. 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 Never 09/14/2022 Q2: How many drinks containi ng alcohol do you have on a typical day when you are drinking? Patient does not drink Q3: How often do you have si x or more drinks on one occasion? Never 09/14/2022 PHQ-2 Answer Date Recorded PHQ-2 Total Score 0 08/29/2023 Yearly Questionnaire Answer Date Record ed Do you need any assistance w ith obtaining housing, meals, medication, transportation or medical equipment? No 08/29 Assistance needed for: Not on file 3 Yearly Questionnaire Answer Date Record ed Do you need any assistance w ith obtaining housing, meals, medication, transportation or medical equipment? No 08/29 Assistance needed for: Not on file 3 Yearly Questionnaire Answer Date Record ed Do you need any assistance w ith obtaining housing, meals, medication, transportation or medical equipment? No 08/29 Assistance needed for: Not on file 3 Comments No Sex and Gender Information Value Date Recorded Sex Assigned at Not on file Legal Sex Female 4:12 PM EST Gender Identity Not on file Sexual Orientation Not on file Last Filed Vital Signs Vital Sign Reading Time Taken Comments Blood Pressure 146/94 05/14/2024 1:12 PM EDT Pulse 84 05/14/2024 1:12 PM EDT Temperature 35.9 C (96.7 F) 08/29/2023 3:56 PM EST Respiratory Rate 15 09/14/2022 3:00 PM EST Oxygen Saturation 95% 05/14/2024 1:12 PM EDT Inhaled Oxygen Concentration 95% 05/14/2024 1 :12 PM EDT Weight 66.4 kg (146 lb 6.4 oz) 05/14/2024 1:12 P M EDT Height 147.3 cm (4' 10 ) 05/14/2024 1:12 PM EDT Body Mass Index 30.6 05/14/2024 1:12 PM EDT Plan of Treatment Health Maintenance Due Date Last Done Comments Abnormal Colonoscopy Follow Up 1961 Hepatitis C Screening (MyChart) 1961 Tobacco Cessation Readiness 1961 HIV Screening 1979 Immunization: DTaP/Tdap/Td (1 - Tdap) 1980 Immunization: Pneumococcal ( 1 of 2 - PCV) 1980 Cervical Cancer Screening/Pa p Smear (MyChart) 1991 Cologuard (FIT-DNA) 2006 Colonoscopy 2006 Colorectal Cancer Screening (MyChart) 2006 Stool Testing (gFOBT) 2006 Immunization: Zoster (1 of 2) 2011 Lung Cancer Screening 2011 Mammogram (MyChart) 12/15/2022 12/15/2020 ( Performed Elsewhere) Diabetes Screening 05/09/2023 05/09/2022 Immunization: COVID-19 ( season) 2024 02/01/2021, 01/02/2021 Depression Screening 08/29/2024 08/29/2023, 06/21/20 22 Immunization: Influenza (MyC carver) (#1) 2025 Immunization: RSV (Adult) (1 - 1-dose 75+ series) 2036 Procedures Procedure Name Priority Date/Time Associated Diagnosis Comments HEMOGLOBIN A1C Routine 05/09/2022 5:52 AM EDT from Last 3 Months or Most Recently Relevant to Health Maintenance Results * Hemoglobin A1c (05/09/2022 5:52 AM EDT) Hemoglobin A1C 5.5 4.0 - 5.6 % 05/09/2022 7:58 AM EDT [facility] Comment: Hemoglobin A1c Interpretation Guidelines: Normal: <5.7% Prediabetes: 5.7-6.4% Diabetes: >/= 6.5% Diagnosis requires two independent tests unless clinical diagnosis is clear. Some clinical conditions, particularly anemias and hemoglobinopathies, may interfere with the diagnostic accuracy of hemoglobin A1c. The recommended goal for diabetic glycemic control (Hemoglobin A1c <7.0%) should be Individualized based on duration of diabetes, age/life expectancy, comorbid conditions, known CVD or advanced microvascular complications, hypoglycemia unawareness, and other individual patient considerations. Whole Blood 05/09/2022 5:52 AM EDT 05/09/2022 6:02 AM EDT us Tabitha Bess MD LAB BLOOD ORDERABLES Final Resul t [facility] [address] [place] [address], [facility] from Last 3 Months or Most Recently Relevant to Health Maintenance Insurance [facility] care Address: [place] [address] [address] [place] [address] Advance Directives For more information, please contact: [phone] * Full Code (Latest Code Status on File) Date Activated Date Inactivated Comments 09/13/2022 11:08 AM 09/14/2022 8:39 PM * Full Code Date Activated Date Inactivated Comments 05/09/2022 4:55 AM 05/15/2022 10:38 PM Care Teams Steward/Stewardess Wine Relationship Specialty Start Date End Date Jostin Wilkins MD [address] [place] [phone] PCP - General Internal Medicine 05/09/22
--- OUTSIDE RECORDS SUMMARY | 2025-05-01 23:01 | XMS_ITS | Clinical Summary ---
Author Organization [facility] [place] Address [address] [place] [address] Phone Care Team Providers Care Conference Assistant Name Role Phone Jostin Lambert MD Primary Care Provider [phone] Allergies Active Allergy Reactions Criticality Noted Date Comments Mycinette 01/01/2012 Penicillins 01/01/2012 Medications EPINEPHrine (EPIPEN) 0.3 mg/0.3 mL Inj Auto-Injector INJECT 0.3mL INTO THE MUSCLE NEEDED FOR ANAPHYLAXIS 2 Each 1 3 Active atorvastatin (LIPITOR) 80 mg Oral Tablet Take 1 Tablet by mouth nightly 90 Tablet 3 4 Active ELIQUIS 5 mg Oral Tablet Take 1 Tablet by mouth 2 times daily for 360 days. 180 Tablet 3 4 Active topiramate (TOPAMAX) 50 mg Oral TabletIndication s:Weight gain Take 1 Tablet by mouth 2 times daily. 60 Tablet 2 5 Active oxybutynin (DITROPAN-XL) 5 mg Oral Tablet Extended Rel 24 hrIndications:Ur inary incontinence without sensory awareness Take 1 Tablet by mouth daily for 180 days. 30 Tablet 5 5 06/19/20 25 Active traZODone (DESYREL) 100 mg Oral Tablet Take 1 Tablet by mouth nightly for 90 days. 30 Tablet 2 5 05/11/20 25 Active valsartan-hydroc hlorothiazide (DIOVAN-HCT) 160-12.5 mg Oral TabletIndication s:Essential hypertension Take 1 Tablet by mouth daily for 360 days. 90 Tablet 3 5 03/03/20 26 Active aspirin 325 mg Oral Tablet Take 1 Tablet by mouth daily (with breakfast). 90 Tablet 3 5 Active HYDROcodone-acet aminophen (NORCO) 5-325 mg Oral TabletIndication s:Radiculopathy of cervical spine Take 1 Tablet by mouth every 6 hours. 90 Tablet 5 Active Active Problems Patient Care Coordination No te Formatting of this note migh t be different from the original. HCC audit completed by Elif Campuzano RN on 02/04/2023. 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 Not driving due to limitations from CVA Weakness following cerebrovascular accident (CVA ) 08/12/2022 Assessment & Plan (06/28/2024 3:02 PM EDT): Reviewed FCE - agree with findings. Completed disability form for environmental lawyer. Assessment & Plan (11/11/2023 3:42 PM EST): Increased movement of upper arm, contracture of hand/wrist. Continue with therapy. Assessment & Plan (07/15/2023 4:03 PM EDT): Left facial droop/left arm weakness Assessment & Plan (01/10/2023 8:56 AM EDT): Continued frustration over lack of function of left arm. Wants it all to 'get better'. Having contracture of left hand. Discussed continued PT/OT. Has appointment on Friday Hemiparesis of left nondomin ant side as late effect of cerebral infarction 06/10/2022 Assessment & Plan (02/10/2025 9:25 AM EDT): Discussed with patient that she should expect little improvement in this deficit. Assessment & Plan (11/08/2024 10:14 AM EST): Chronic, limiting functional ability to care for herself. Unlikely to improve. Assessment & Plan (12/03/2022 1:47 PM EST): Developing some contractures of left hand. Still able to passively flex/extend. Will need further physical therapy to avoid loss of function. Assessment & Plan (10/16/2022 9:39 AM EST): Patient states she needs new referral for physical therapy Referral placed today Assessment & Plan (10/01/2022 3:34 PM EST): Slow improvement, still with significant deficit. Continue physical therapy. Assessment & Plan (08/23/2022 2:57 PM EDT): No significant improvement. Assessment & Plan (06/27/2022 1:47 PM EDT): Starting to develop some contracture of left upper extremity. Discussed importance of continuing physical therapy. (not sure if home services have completed, asked them to have home health nurse contact us.). Late effects of CVA (cerebrovascular accident) 0 06/10/2022 Assessment & Plan (05/31/2024 10:43 AM EDT): Mobility impaired. Given Rx for cane. Attempting to get disability Assessment & Plan (02/24/2024 1:30 PM EDT): Left arm weakness/hand contracture - in therapy. Assessment & Plan (09/04/2023 3:47 PM EST): Slow improvement with upper arm strength/mobility Left hand still with contracture. Continue current exercises Assessment & Plan (04/01/2023 2:50 PM EDT): Left hemiparesis, no significant change. Assessment & Plan (12/03/2022 1:49 PM EST): Will re-evaluate for home PT/OT Losing weight - not able to cook for herself easily and not much support in the home. Continues to drive (no one else to help her). Hepatitis C antibody positive in blood 9 Overview (12/20/2018): Neg HCV quant/rna Essential hypertension 12/11/2018 Assessment & Plan (09/04/2023 3:47 PM EST): Rechecked and documented. Assessment & Plan (03/10/2023 1:38 PM EDT): Goal BP : < 140/90 - at goal Compliance: - taking medications as prescribed. Advice: - continue a low salt diet and remain physically active Self Monitoring:- continue BP monitoring as previous Medication Management: - medication management decisions took place at today's visit (see orders) Assessment & Plan (01/10/2023 8:56 AM EDT): Goal BP : < 140/90 - improving Compliance: - taking medications as prescribed. Advice: - continue a low salt diet and remain physically active Self Monitoring:- continue BP monitoring as previous Medication Management: - medication management decisions took place at today's visit (see orders) Assessment & Plan (12/03/2022 1:49 PM EST): Goal BP : < 140/90 - at goal Compliance: - taking medications as prescribed. Advice: - continue a low salt diet and remain physically active Self Monitoring:- continue BP monitoring as previous Medication Management: - medication management decisions took place at today's visit (see orders) At goal, a little low today. Denies any symptoms of light headedness/dizziness. Assessment & Plan (10/16/2022 9:38 AM EST): Goal BP : < 140/90 - not at goal Medication Management: - medication management decisions took place at today's visit (see orders) -no longer has a cuff at home. Given another one today -discussed take blood pressure daily for the next few weeks. Contact our office to schedule an appointment if values are consistently <120/80 or >140/100. Patient was concerned that low blood pressure contributed to fall but based off values in chart, do not suspect hypotension episodes at that time Assessment & Plan (08/23/2022 2:57 PM EDT): Goal BP : < 140/90 - not at goal Compliance: - taking medications as prescribed. Advice: - continue a low salt diet and remain physically active Self Monitoring:- continue BP monitoring as previous Medication Management: - medication management decisions took place at today's visit (see orders) Assessment & Plan (06/27/2022 1:51 PM EDT): increase Cozaar to 50 mg daily Assessment & Plan (03/22/2021 3:05 PM EDT): Uncontrolled. Needs to stop smoking. Probably in some part stress related (taking care of 5 grandchildren). Increase toprol to 50 mg daily. Assessment & Plan (12/14/2020 9:13 AM EST): Stable on current medications Assessment & Plan (07/27/2020 3:00 PM EDT): BP elevated at visit, due to 'stress' per patient. Rechecked an documented. Tobacco abuse 12/11/2018 Overview (12/11/2018): Advised to cut back. Offered cessation products and declined Chronic pain 01/01/2012 Overview (11/22/2021): Chronic neck pain due to underlying arthritis/radiculopathy. Assessment & Plan (09/04/2023 3:48 PM EST): State Prescription Drug Monitoring Program (i.e NICOLE, INSPECT, OARS): - report reviewed in the past year Urine Drug Screen: Needs updated. Controlled Substatnce Contract: - completed and on file Last resulted compliance panel date: 02/20/2022 Assessment & Plan (10/01/2022 3:35 PM EST): Goals:- maintain lowest amount of pain medication to manage ADLs comfortably On hydrocodone. Dosage adequate for pain management. No changes. Up to date on HB-1 requirements CTS (carpal tunnel syndrome) Menopause Radiculopathy of cervical spine Overview (12/11/2018): Stable on norco tid prn prescribed/managed by dr. lambert Assessment & Plan (02/10/2025 9:26 AM EDT): Chronic pain Last resulted compliance panel date: 11/12/2023 CSA on file Assessment & Plan (02/24/2024 1:31 PM EDT): Continue current medications. Last resulted compliance panel date: 11/12/2023 Assessment & Plan (07/15/2023 4:03 PM EDT): Stable on current medications - continue same. Assessment & Plan (04/01/2023 2:51 PM EDT): Continue current medications, up to date on hb-1 requirements. Due refill next week. Assessment & Plan (07/24/2021 2:56 PM EDT): Doing well on current medications. No new concerns or problems. Chronic, daily pain. Assessment & Plan (03/22/2021 3:05 PM EDT): Stable on current medications. UDS and CSA today. No other changes. Assessment & Plan (12/14/2020 9:12 AM EST): Stable on current medications, no new symptoms or problems. Assessment & Plan (03/14/2020 1:43 PM EDT): Doing well on current medications. No worsening of symptoms. No indication for further imaging/evaluation at this time. Resolved Problems Problem Noted Date Diagnosed Date Resolved Date Cerebral infarction due to o cclusion of right carotid artery 06/27/2022 04/01/2023 Overview (06/27/2022): Seeing neurosurgery at . Scheduled for repeat CT angiogram of neck to determine if she is a surgical candidate. Medication management 12/11/20182019 Overview (12/11/2018): JEANNETTE [place]: [place] per Dr. Lambert OFV: 12/11/18 CSA: on file HB-1: collected 12/11/18 Nicole: not reviewed today, med not due BMI 26.0-26.9,adult 12/11/2018 02/11/20 25 Overview (12/11/2018): Encouraged diet/exercise. Encounters Date Type Department Care Team Description 03/30/[address] [place] [address] Jostin Lambert MD Medication Refill 03/28/[address] [place] [address] Jostin Lambert MD Medication Refill 03/08/2025 Orders Only [address] [place] [address] Ayde Fernandez MA Essential hypertension 02/17/[address] [place] [address] Jostin Lambert MD Medication Refill 02/10/2025 9:00 AM EDT Office Visit [address] [place] [address] Jostin Lambert MD Insomnia, persistent (Primary Dx); Hemiparesis of left nondominant side as late effect of cerebral infarction (HCC); Radiculopathy of cervical spine 02/07/2025 2:40 PM EDT Office Visit [address] [place] [address] Nicole Nazario APRN Urinary incontinence without sensory awareness from Last 3 Months Immunizations Immunization Administration Dates Next Due Tdap 05/29/2024 Surgical History Surgery Date Site/Laterality Comments SECTION Medical History Medical History Date Comments CTS (carpal tunnel syndrome) Radiculopathy of cervical spine Screening mammogram 10/20/2009 normal CTS (carpal tunnel syndrome) Radiculopathy of cervical spine Stroke (HCC) Family History Medical History Relation Name Comments Breast Cancer Mother Ovarian Cancer Mother Relation Name Status Comments Mother Social History Tobacco Use Types Packs/Day Years Used Date Smoking Tobacco: Every Day Cigarettes Passive Smoke Exposure: Past Smokeless Tobacco: Never Tobacco Cessation:Ready to Q uit: Not Asked; Counseling Given: Not Answered Alcohol Use Standard Drinks/Week Comments No 0 [...] on file Sexual Orientation Not on file Obstetrics History Para Term AB IAB SAB Ectopic Multiple Livin g Live Births 2 Last Filed Vital Signs Vital Sign Reading Time Taken Comments Blood Pressure 138/84 02/10/2025 9:10 AM EDT Pulse 82 02/10/2025 9:10 AM EDT Temperature 36.7 C (98 F) 02/10/2025 9:10 AM EDT Respiratory Rate 18 02/10/2025 9:10 AM EDT Oxygen Saturation 99% 02/10/2025 9:10 AM EDT Inhaled Oxygen Concentration - - Weight 61.7 kg (136 lb) 02/10/2025 9:10 AM EDT Height 147.3 cm (4' 10 ) 02/10/2025 9:10 AM EDT Body Mass Index 28.42 02/10/2025 9:10 AM EDT Plan of Treatment Health Maintenance Due Date Last Done Comments Pneumococcal Vaccine 50+ (1 of 2 - PCV) 1980 Cervical Cancer Screening 1982 Pap Smear 1982 HPV/Pap Cotest 1991 Cologuard 2006 Colon Cancer Screening 2006 Colonoscopy 2006 FIT 2006 Sigmoidoscopy 2006 Virtual Colonography 2006 Zoster (1 of 2) 2011 COVID-19 Vaccine (3 - season) 2024 02/01/2021, 01/02/2021 Influenza Vaccine (#1) 2025 6 (Declined), 01/02/2016 (Declined) Wellness Exam Medicare 12/22/2025 12/21/2024 Breast Cancer Screening 12/02/2026 12/02/19, 12/14/2020, 11/13/2009, Additional history exists DTaP/TDaP/Td (2 - Td or Tdap) 05/29/2034 05/29/2024 Hepatitis C Screening Completed 12/11/2018 Hepatitis B Vaccine Aged Out No longe r eligible based on patient's age to complete this topic Meningococcal B Vaccine Aged Out No l onger eligible based on patient's age to complete this topic Goals Goal Patient Goal Type Associated Problems Recent Progress Patient-Stated? Author Blood Pressure < 140/90 Blood Pressure 138/84(2024 9:10 AM EDT) No Kay Delong, VINICIUS Maintain a healthy diet, exercise regularly and maintain an ideal body weight General No Ange St RMA Stay Tobacco Free Lifestyle No Ange St RMA Procedures Procedure Name Priority Date/Time Associated Diagnosis Comments URINE CULTURE (NO STAIN) Routine 02/07/2025 3:08 PM EDT Urinary incontinence without sensory awareness SEP URINALYSIS POC Routine 02/07/2025 2 :57 PM EDT Urinary incontinence without sensory awareness MM MAMMO DIGITAL JUANITO SCREEN BILAT Routine 12/02/2024 3:10 PM EST Encounter for screening mammogram for breast cancer HCV ANTIBODY SCREEN W/ REFLEX Routine 12/11/2018 4:30 PM EST Need for hepatitis C screening test from Last 3 Months or Most Recently Relevant to Health Maintenance Results * URINE CULTURE (NO STAIN) (02/07/2025 3:08 PM EDT) Pathologist [facility] Culture Multiple bacterial species isolated from urine consistent with urogenital commensal organisms. 02/09/2025 3:34 AM EDT PREFERRED [employer] Urine STRUCTURE OF URINARY TRACT PROPER / Unknown 02/07/2025 3:08 PM EDT 02/07/2025 3:08 PM EDT us Nicole Nazario [employer] MICROBIOLOGY - GENERAL ORDERABLES Final Result [facility] [address] [facility] , [place] [address] * (ABNORMAL) SEP URINALYSIS POC (02/07/2025 2:57 PM EDT) UA Color POC Dark Yellow Color 02/07/2025 2:59 PM EDT [facility] [place] UA Appear POC Cloudy(A) Clear 02/07/2025 2:59 PM EDT [facility] [place] UA Gluc POC Negative Negative mg/dL 02/07/2025 2:59 PM EDT [facility] [place] UA Bili POC Negative Negative 02/07/2025 2:59 PM EDT [facility] [place] UA Ketones POC Negative Negative mg/dL 02/07/2025 2:59 PM EDT [facility] [place] UA SG POC >=1.030 1.001 - 1.035 no units 02/07/2025 2:59 PM EDT [facility] [place] UA Blood POC Trace-Intact (A) Negative 02/07/2025 2:59 PM EDT [facility] [place] UA pH POC 5.5 5.0 - 8.0 pH 02/07/2025 2:59 PM EDT [facility] [place] UA Protein POC Negative Negative mg/dL 02/07/2025 2:59 PM EDT [facility] [place] UA Urobilinogen POC 0.2 0.2, 1.0 02/07/2025 2:59 PM EDT [facility] [place] UA Nitrite POC Negative Negative 02/07/2025 2:59 PM EDT [facility] [place] UA Leuk Est POC Negative Negative 2:59 PM EDT [facility] [place] Urine STRUCTURE OF URINARY TRACT PROPER / Unknown 02/07/2025 2:57 PM EDT 02/07/2025 2:59 PM EDT us Nicole Nazario [employer] POINT OF CARE TEST ORD ERABLES Final Result [facility] [address] [place] [address] * MM MAMMO DIGITAL JUANITO SCREEN BILAT (12/02/2024 3:10 PM EST) Anatomical Region Laterality Modality Breast Bilateral Mammography 12/02/2024 3:10 PM EST Impressions 12/06/2024 9:51 AM EST Benign ([id number]) RECOMMENDATION: Routine Screening Mammogram in 1 Year Bilateral . . COMMENTS: Narrative 12/06/2024 9:51 AM EST EXAM: MM MAMMO DIGITAL JUANITO SCREEN BILAT EXAM DATE: 12/02/2024 3:10 PM INDICATION: Z12.31-Encounter for screening mammogram for malignant neoplasm of [id number] COMPARISON STUDIES: Compared with prior studies the most recent being 12/14/2020 MM MAMMO DIGITAL JUANITO SCREEN BILAT at [facility] TISSUE DENSITY: There are scattered areas of fibroglandular density. FINDINGS: No mammographic evidence of malignancy. Similar multiple bilateral circumscribed masses, typically a benign pattern, often representing cysts or fibroadenomas. Procedure Note Joshua Larios MD - 12/06/2024 EXAM: MM MAMMO DIGITAL JUANITO SCREEN BILAT EXAM DATE: 12/02/2024 3:10 PM INDICATION: Z12.31-Encounter for screening mammogram for malignantneoplasm of [id number] COMPARISON STUDIES: Compared with prior studies the most recent being 12/14/2020 MM MAMMO DIGITAL JUANITO SCREEN BILAT at [facility] TISSUE DENSITY: There are scattered areas of fibroglandular density. FINDINGS: No mammographic evidence of malignancy. Similar multiplebilateral circumscribed masses, typically a benign pattern, often representing cystsor fibroadenomas. IMPRESSION: Benign ([id number]) RECOMMENDATION: Routine Screening Mammogram in 1 Year Bilateral . . COMMENTS: Jostin Lambert MD IMG MAMMOGRAPHY ORDERABLES Fin al Result * (ABNORMAL) HEPATITIS C ANTIBODY - SCREENING (12/11/2018 4:30 PM EST) Hep C Ab Reactive( A) Non-React courtney 12/11/2018 8:31 PM EST [facility] Comment:Weakly Reactive. Pre sumptive evidence of antibodies to HCV, however nonspecific (false positive) results may occur in this range. Supplemental confirmatory testing of a follow-up specimen is recommended. The recommended follow-up test is HCV QUANT W/RFLX TO GENOTYPE -REF LAB Blood Venipuncture / Unknown 12/11/2018 4:30 PM EST 12/11/2018 4:30 PM EST Kay Delong [employer] HEMATOLOGY ORDERABLES Final Result [facility] [address], [place] [address] from Last 3 Months or Most Recently Relevant to Health Maintenance Insurance MEDICARE [place] PART A AND B MEDICARE [place] PART A AND B * Guarantor: [facility] [employer] ([employer]) Account Type Relation to Patient Date of Phone Billing Address Corporate Other [address] [facility] Attn: Elizabeth Duggan [facility] [place] [id number] Care Teams Conference Assistant Relationship Specialty Start Date End Date Jostin Lambert MD [address] [place] [address] PCP - General Family Medicine 03/26/11
--- OUTSIDE RECORDS SUMMARY | 2025-05-01 23:01 | XMS_ITS | Encounter Summary ---
Author Organization [place] [address] Care Team Providers Care Corporate Associate Name Role Phone Jostin Wilkins MD Primary Care Provider [phone] Encounter Details Date Type Department Care Team (Late st Contact Info) Description 03/08/2025 Orders Only [facility] [address] [place] [address] Ayde Fernandez MA Essential hypertension Social History Tobacco Use Types Packs/Day Years [...] Refills Last Filled Start Date End Date valsartan-hydrochl orothiazide (DIOVAN-HCT) 160-12.5 mg Oral TabletIndications: Essential hypertension Take 1 Tablet by mouth daily for 360 days. 90 Tablet 3 03/08/2025 03/03/2026 documented in this encounter Plan of Treatment Not on file documented as of this encounter Goals Goal Patient Goal Type Associated Problems Recent Progress Patient-Stated? Author Blood Pressure < 140/90 Blood Pressure 138/84(2024 9:10 AM EDT) No Kay Delong APRN Maintain a healthy diet, exercise regularly and maintain an ideal body weight General No Maciel, Ange S, RMA Stay Tobacco Free Lifestyle No Ange St S, RMA documented as of this encounter Visit Diagnoses Diagnosis Essential hypertension Unspecified essential hypertension documented in this encounter Discontinued Medications Medication Sig Discontinue Reason Start Date End Da te valsartan-hydrochlorothia zide (DIOVAN-HCT) 160-12.5 mg Oral TabletIndications:Gabriel al hypertension Take 1 Tablet by mouth daily for 360 days. Reorder 03/05/2024 03/08/2025 documented as of this encounter Care Teams Corporate Associate Relationship Specialty Start Date End Date Jostin Wilkins MD [address] [place] [id number] PCP - General Family Medicine 03/26/11 documented as of this encounter
[2025-05-01 23:06] LABS: Microscopic, Urine URINE MICROSCOPIC (MICROSCOPIC)
[2025-05-01 23:12] LABS: Bilirubin,Urine Negative (Negative); Color,Urine YELLOW (Yellow); Glucose,Urine (UA) Negative (Negative); Ketones,Urine Negative (Negative); Leukocyte Esterase,Urine Negative (Negative); PH,Urine 6.5 (5.0-8.5); Protein,Urine Negative (Negative); Specific Gravity, Urine <= 1.005 (1.005-1.030); Urobilinogen,Urine 0.2 EU/dl (0.2)
[2025-05-01 23:16] LABS: RBC,Urine Occasional #/hpf (0-3); WBC,Urine Occasional #/hpf (0-3)
[2025-05-01 23:17] LABS: Bacteria,Urine Trace /lpf
[2025-05-01 23:31] VITALS: BP 124/94; RESP 22
[2025-05-02 00:02] VITALS: BP 143/126; RESP 16; O2SAT 95
[2025-05-02 00:26] VITALS: BP 149/126; PULSE 85; RESP 17; TEMP 36.9; O2SAT 97
[2025-05-02 02:00] LABS: Reflex Lactic Add Lactic Reflex
== END 2025-05-02 00:29 | disposition home or self-care (01) ==
PROVIDERS: Emergency Provider Student in an Organized Health Care Education/Training Program; PCP Pediatrics
DX: R55 Syncope and collapse (principal); I10 Essential (primary) hypertension; E78.5 Hyperlipidemia, unspecified; F17.200 Nicotine dependence, unspecified, uncomplicated
CPT/HCPCS: 70450; 70496; 70498; 71045; 71275; 80053; 81001; 82803; 84484; 85025; 85610; 85730; 93005; 96360; 99285; J7120; Q9967